=== PATIENT | female | born 1960 | race Caucasian/White ===

== ENCOUNTER → 2016-03-29 | Outpatient (CLI) | payer OTHER | LOC: OPSV 08:57 → CT 11:30 | DX: D50.9 Iron deficiency anemia, unspecified (principal); D64.9 Anemia, unspecified; K90.9 Intestinal malabsorption, unspecified; Z85.43 Personal history of malignant neoplasm of ovary; K25.7 Chronic gastric ulcer without hemorrhage or perforation; R10.9 Unspecified abdominal pain; E27.8 Other specified disorders of adrenal gland; K92.89 Other specified diseases of the digestive system | CPT/HCPCS: 36415; 74160; 82565; 84520; 96360; 96361; J7030; J7050; Q9962 ==